=== PATIENT | female | born 1995 | race American Indian/Alaskan Native ===

== ENCOUNTER 2019-04-13 00:25 | Emergency (ER) | payer MEDICARE ==
[2019-04-13 01:13] LABS: Basophils % (Auto) 0.4 % (0.0-1.8); Eosinophils # (Auto) 0.1 K/mm3 (0.0-0.4); Eosinophils % (Auto) 0.7 % (0.0-4.3); Hematocrit 32.7 % (30.3-42.9); Hemoglobin 10.7 gm/dl (10.1-14.3); Lymphocytes % (Auto) 17.6 % (13.4-35.0); Mean Corpuscular HGB Conc 33 % (30-34); Monocytes # (Auto) 0.6 K/mm3 (0.0-0.8); Monocytes % (Auto) 5.3 % (0.0-7.3); Platelet Count 170 K/mm3 (140-440); Red Blood Count 4.68 M/mm3 (3.65-5.03); Red Cell Distribution Width 13.3 % (13.2-15.2)
[2019-04-13 01:25] LABS: Mean Corpuscular Volume 70 fl (79-97)
[2019-04-13 01:34] LABS: BUN/Creatinine Ratio 10; Blood Urea Nitrogen 6 mg/dL (7-17); Calcium 9.2 mg/dL (8.4-10.2); Hemolysis Index 2
[2019-04-13 01:58] LABS: Amphetamine Screen,Urine PRESUMPTIVE NEGATIVE; Benzodiazepines Screen,Urine PRESUMPTIVE NEGATIVE; Cocaine Screen,Urine PRESUMPTIVE NEGATIVE; Methadone Screen,Urine PRESUMPTIVE NEGATIVE; Opiate Screen,Urine PRESUMPTIVE NEGATIVE
[2019-04-13 01:59] LABS: Bilirubin,Urine NEG (Negative); Blood,Urine NEG (Negative); Color,Urine Yellow (Yellow); Mucus,Urine FEW /HPF; Protein,Urine <15 mg/dL mg/dL (Negative)
[2019-04-13 02:20] LABS: Cannabinoid Screen,Urine PRESUMPTIVE POSITIVE
--- NOTE | 2019-04-13 05:26 | Emergency Department Report ---
ED Psych HPI - General Chief Complaint: Medical Clearance Stated Complaint: MH EVALUATION/MEDICATION REFILL Time Seen by Provider: 04/13/19 03:14 Source: patient Mode of arrival: Ambulatory - History of Present Illness Initial Comments: 24-year-old female with a history of schizophrenia presents to the ED for mental health evaluation. Patient states, "I don't know why I'm here. My friend said I needed to come and get evaluated. " Patient states she is currently not taking any psychiatric medications. Denies SI, HI, onset hallucinations. -: unknown Associated Psychiatric Symptoms: none History of same: Yes Improves With: none Worsens With: none Context: not taking psychiatric Associated Symptoms: denies other symptoms Treatments Prior to Arrival: none - Related Data Allergies Allergy/AdvReac Type Severity Reaction Status Date / Time No Known Allergies Allergy Unverified 04/13/19 00:48 ED Review of Systems ROS: Stated complaint: MH EVALUATION/MEDICATION REFILL Other details as noted in HPI Comment: All other systems reviewed and negative Psychiatric: denies: anxiety, depression, auditory hallucinations, visual hallucinations, homicidal thoughts, suicidal thoughts ED Past Medical Hx - Past Medical History Previous Medical History?: Yes Hx Psychiatric Treatment: Yes (schizophrenia depression dilussion) Hx Asthma: Yes - Surgical History Past Surgical History?: No - Social History Smoking Status: Never Smoker Substance Use Type: Alcohol, Marijuana ED Physical Exam - General Limitations: No Limitations General appearance: alert, in no apparent distress - Head Head exam: Present: atraumatic, normocephalic - Eye Eye exam: Present: normal appearance - ENT ENT exam: Present: mucous membranes moist - Neck Neck exam: Present: normal inspection - Respiratory Respiratory exam: Present: normal lung sounds bilaterally. Absent: respiratory distress - Cardiovascular Cardiovascular Exam: Present: regular rate, normal rhythm - GI/Abdominal GI/Abdominal exam: Present: soft. Absent: distended, tenderness - Extremities Exam Extremities exam: Present: normal inspection - Neurological Exam Neurological exam: Present: alert, oriented X3 - Psychiatric Psychiatric exam: Present: normal affect, normal mood. Absent: agitated, homicidal ideation, suicidal ideation - Skin Skin exam: Present: warm, dry, intact, normal color. Absent: rash ED Course Vital Signs 04/13/19 04:20 Pulse Rate 70 Respiratory 14 Rate Blood Pressure 102/58 [Left] O2 Sat by Pulse 98 Oximetry ED Medical Decision Making - Lab Data Result diagrams: 04/13/19 00:50 04/13/19 00:50 - Medical Decision Making Labs unremarkable. Pt states she knows that she is , has missed 3 periods so far, no care yet. Has not taken psych meds in 3 months. Denies SI, HI, hallucinations, abd pain or vag bleeding. Pt does not meet inpatient criteria for psych admission. Advised outpt OB and psych follow-up. Return precautions given. Critical care attestation.: If time is entered above; I have spent that time in minutes in the direct care of this critically ill patient, excluding procedure time. ED Disposition Clinical Impression: Schizophrenia, Positive test Disposition: TO HOME OR SELFCARE Is pt being admited?: No Condition: Stable Instructions: (ED), Schizophrenia (ED) Referrals: KARYN WYATT MD [Primary Care Provider] - 3-5 Days [facility] [Outside] - 3-5 Days RACHEL MATHUR MD [Staff Physician] - 3-5 Days Time of Disposition: 05:27
[2019-04-13 05:42] VITALS: BP 105/52
== END 2019-04-13 05:43 | disposition home or self-care (01) ==
LOC: ED 00:25
DX: O99.341 Other mental disorders complicating pregnancy, first trimester (principal); Z3A.12 12 weeks gestation of pregnancy; F20.9 Schizophrenia, unspecified; J45.909 Unspecified asthma, uncomplicated; F12.10 Cannabis abuse, uncomplicated
CPT/HCPCS: 36415; 80048; 80307; 81001; 84703; 85025; 99283; G0480; 80320

== ENCOUNTER 2020-06-10 13:20 | Emergency (ER) | payer MEDICARE ==
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
[2020-06-10 17:25] LABS: Basophils # (Auto) 0.1 K/mm3 (0.0-0.1); Basophils % (Auto) 0.7 % (0.0-1.8); Eosinophils # (Auto) 0.4 K/mm3 (0.0-0.4); Eosinophils % (Auto) 3.9 % (0.0-4.3); Hematocrit 34.4 % (30.3-42.9); Hemoglobin 11.5 gm/dl (10.1-14.3); Lymphocytes # (Auto) 1.8 K/mm3 (1.2-5.4); Lymphocytes % (Auto) 16.7 % (13.4-35.0); Mean Corpuscular HGB Conc 34 % (30-34); Mean Corpuscular Volume 71 fl (79-97); Monocytes # (Auto) 0.7 K/mm3 (0.0-0.8); Monocytes % (Auto) 6.8 % (0.0-7.3); Platelet Count 189 K/mm3 (140-440); Red Blood Count 4.82 M/mm3 (3.65-5.03)
[2020-06-10 17:48] LABS: Blood Urea Nitrogen 6 mg/dL (7-17); Calcium 9.2 mg/dL (8.4-10.2); Hemolysis Index 3
[2020-06-10 17:56] LABS: BUN/Creatinine Ratio 12
--- NOTE | 2020-06-10 21:15 | Ultrasound Report ---
ULTRASOUND OBSTETRIC INDICATION / CLINICAL INFORMATION: new diagnosis of , mental health pt. Clinical Gestational Age (GA): Not provided TECHNIQUE: Transabdominal. COMPARISON: None available. FINDINGS: There is a single intrauterine . Biparietal Diameter = 3.1 cm = 15.6 weeks.days Head Circumference = 11.9 cm = 15.6 weeks.days Abdominal Circumference = 10.1 cm = 16.1 weeks.days Femur Length = 1.8 cm = 15.2 weeks.days Average Ultrasound Age (AUA) = 15.6 weeks.days Heart Rate: 173 beats per minute. Estimated Weight in grams (if calculated): Not calculated Estimated Weight Growth Percentile (if calculated): Not calculated Position: cephalic. Cervix: closed. Length in cm (if measured): 3.4 Placenta: anterior and free of the os. Amniotic Fluid Volume: normal Amniotic Fluid Index (CY) in cm (if calculated): 8.3. Maternal Adnexa: No significant abnormality. IMPRESSION: 1. Single, living intrauterine with estimated sonographic age of 15.6 weeks.days 2. No acute sonographic abnormality. Signer Name: Kamran Fall MD Signed: 06/10/2020 9:10 PM Workstation Name: [id number]
[2020-06-10 23:40] LABS: Bilirubin,Urine NEG (Negative); Blood,Urine NEG (Negative); Color,Urine Yellow (Yellow); Protein,Urine <15 mg/dL mg/dL (Negative); RBC,Urine < 1.0 /HPF (0.0-6.0)
[2020-06-10 23:47] LABS: Amphetamine Screen,Urine PRESUMPTIVE NEGATIVE; Benzodiazepines Screen,Urine PRESUMPTIVE NEGATIVE; Cannabinoid Screen,Urine PRESUMPTIVE NEGATIVE; Cocaine Screen,Urine PRESUMPTIVE NEGATIVE; Methadone Screen,Urine PRESUMPTIVE NEGATIVE; Opiate Screen,Urine PRESUMPTIVE NEGATIVE
[2020-06-11 04:18] VITALS: BP 123/85
== END 2020-06-11 06:32 ==
LOC: ED 13:20
DX: O99.342 Other mental disorders complicating pregnancy, second trimester (principal); F20.9 Schizophrenia, unspecified; F29 Unspecified psychosis not due to a substance or known physiological condition; Z59.0 Homelessness; J45.909 Unspecified asthma, uncomplicated; Z3A.15 15 weeks gestation of pregnancy
CPT/HCPCS: 36415; 76805; 80048; 80307; 80320; 81001; 84702; 84703; 85025; G0480